=== PATIENT | male | born 1960 | race Caucasian/White ===

== ENCOUNTER 2019-04-23 16:45 | Emergency (ER) | payer MEDICAID, OTHER ==
[~2019-04-23] VITALS: Ht 165.1 cm; Wt 112.0 kg
[~2019-04-23 16:45] MED LIST: ATORVASTATIN CA10 MG ORAL; IBUPROFEN600 MG PO; NKM; NORCO 5-325 TA1 EACH ORAL; VICODIN 5-5001 EACH PO
[2019-04-23 17:03] VITALS: BP 117/87
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
[2019-04-23] MEDS ORDERED: Aspirin Baby 81mg ORAL ONE (17:30)
[2019-04-23] MEDS ORDERED: HYDROcodone/Acetamin 5/325 tab ORAL ONE (18:00)
[2019-04-23 18:27] LABS: ANION GAP 10 mmol/L (5-15); BASOPHILS % (AUTO) 1.9 % (0.0-2.0); BLOOD UREA NITROGEN 12 mg/dL (7-18); CALCIUM 8.8 MG/DL (8.5-10.1); CARBON DIOXIDE 25 MMOL/L (21-32); CHLORIDE 104 MMOL/L (98-107); CREATININE 0.8 MG/DL (0.55-1.30); EOSINOPHILS % (AUTO) 4.5 % (0.0-3.0); HEMOGLOBIN 13.4 G/DL (14.2-18.0); LYMPHOCYTES % (AUTO) 23.4 % (20.0-45.0); MEAN CORPUSCULAR VOLUME 88 FL (80-99); MONOCYTES % (AUTO) 7.1 % (1.0-10.0); NEUTROPHILS % (AUTO) 63.2 % (45.0-75.0); PLATELET COUNT 347 K/UL (150-450); POTASSIUM 4.1 MMOL/L (3.5-5.1); RED BLOOD COUNT 4.56 M/UL (4.70-6.10); RED CELL DISTRIBUTION WIDTH 11.5 % (11.6-14.8); SODIUM 139 MMOL/L (136-145); WHITE BLOOD COUNT 8.5 K/UL (4.8-10.8)
[2019-04-23 18:42] LABS: ALANINE AMINOTRANSFERASE 17 U/L (12-78); ALBUMIN 3.6 G/DL (3.4-5.0); ALKALINE PHOSPHATASE 91 U/L (46-116); ASPARTATE AMINO TRANSFERASE 30 U/L (15-37); BILIRUBIN,TOTAL 0.3 MG/DL (0.2-1.0); CKMB 0.5 NG/ML (0.0-3.6); CREATINE KINASE 156 U/L (26-308)
--- NOTE | 2019-04-23 18:47 | NUR ---
ED Nurse Note: ERMD at bedside discussing about dc plans.
[2019-04-23] MEDS ORDERED: NORCO 5-325 TA1 EACH ORAL (18:48)
[2019-04-23 18:53] VITALS: BP 121/79
--- NOTE | 2019-04-23 18:54 | Emergency Room Report ---
History of Present Illness General Chief Complaint: Chest Pain Source: Patient Present Illness HPI Patient presents emergency department today complaint chest pain. Patient states that he was recently admitted to the [facility] for chest pain where complete work-up and was observed for 3 days. At that time he was discharged and told that he needed follow-up as an outpatient. Patient presents today complaining again of chest pain states that he did not get a chance to follow-up as an outpatient. He denies any fever nausea vomiting diarrhea chills. Patient is requesting narcotic pain medications. Review of medical records show the patient has had a history of narcotic overdose as well as drug abuse. Symptoms noted to be moderate. No other modifying factors. No other associated signs and symptoms. No other complaints were noted. Allergies: Coded Allergies: TRAMADOL (Verified Allergy, 02/19/14) VANCOMYCIN (Verified Allergy, 02/19/14) Patient History Past Medical History: other - High cholesterol Past Surgical History: none Pertinent Family History: none Social History: Denies: smoking, alcohol use, drug use Reviewed Nursing Documentation: PMH: Agreed; PSxH: Agreed Nursing Documentation-PMH Past Medical History: No History, Except For Hx Cardiac Problems: Yes - MA, high cholesterol Review of Systems All Other Systems: negative except mentioned in HPI Physical Exam Vital Signs Date Time Temp Pulse Resp B/P (MAP) Pulse Ox O2 Delivery O2 Flow Rate FiO2 04/23/19 16:53 98.2 99 20 117/85 (96) 98 Room Air Sp02 EP Interpretation: reviewed, normal General Appearance: normal inspection, well appearing, no apparent distress, alert Head: atraumatic Eyes: bilateral eye normal inspection ENT: normal ENT inspection, hearing grossly normal, normal voice Neck: normal inspection, full range of motion, supple, no bony tend Respiratory: normal inspection, lungs clear, normal breath sounds, no respiratory distress, no retraction, no wheezing Cardiovascular #1: regular rate, rhythm, no edema Gastrointestinal: normal inspection, normal bowel sounds, non tender, soft, no guarding, no hernia Genitourinary: no CVA tenderness Musculoskeletal: normal inspection, back normal, normal range of motion Neurologic: normal inspection, alert, responsive, speech normal Psychiatric: normal inspection, judgement/insight normal, mood/affect normal Medical Decision Making Diagnostic Impression: Primary Impression: Chest pain ER Course Patient presented to the emergency department today complaining of chest pain. Differential diagnoses include acute coronary syndrome, pulmonary embolism, pneumothorax, chest wall pain, pleurisy, pericarditis, acute anxiety reaction just to name a few. Given the severity of the patient's presentation I felt this is a highly complex patient. This patient required extensive workup. CBC , chemistry, EKG, chest x-ray, cardiac enzymes, liver profile were all obtained. 12-lead EKG performed for nontraumatic chest pain. RS documentation: EKG was performed. Please refer to below for interpretation. Patient had CBC and chemistry obtained. Both of which were normal. Patient's cardiac enzymes also normal. Patient had normal chest x-ray. Patient's EKG and rhythm strip are also normal. Patient is comfortable eating a sandwich. Nontoxic-appearing. Given negative work-up I feel the patient be discharged home. He already was admitted to another hospital and had a work-up there. I did recommend outpatient stress test. Patient is advised to follow up with primary doctor in 2-3 days and return the emergency room for any worsening symptoms and as needed. Labs Test 04/23/19 17:48 White Blood Count 8.5 K/UL (4.8-10.8) Red Blood Count 4.56 M/UL (4.70-6.10) Hemoglobin 13.4 G/DL (14.2-18.0) Hematocrit 40.0 % (42.0-52.0) Mean Corpuscular Volume 88 FL (80-99) Mean Corpuscular Hemoglobin 29.4 PG (27.0-31.0) Mean Corpuscular Hemoglobin Concent 33.5 G/DL (32.0-36.0) Red Cell Distribution Width 11.5 % (11.6-14.8) Platelet Count 347 K/UL (150-450) Mean Platelet Volume 4.7 FL (6.5-10.1) Neutrophils (%) (Auto) 63.2 % (45.0-75.0) Lymphocytes (%) (Auto) 23.4 % (20.0-45.0) Monocytes (%) (Auto) 7.1 % (1.0-10.0) Eosinophils (%) (Auto) 4.5 % (0.0-3.0) Basophils (%) (Auto) 1.9 % (0.0-2.0) Sodium Level 139 MMOL/L (136-145) Potassium Level 4.1 MMOL/L (3.5-5.1) Chloride Level 104 MMOL/L (98-107) Carbon Dioxide Level 25 MMOL/L (21-32) Anion Gap 10 mmol/L (5-15) Blood Urea Nitrogen 12 mg/dL (7-18) Creatinine 0.8 MG/DL (0.55-1.30) Estimat Glomerular Filtration Rate > 60 mL/min (>60) Glucose Level 105 MG/DL (74-106) Calcium Level 8.8 MG/DL (8.5-10.1) Total Bilirubin 0.3 MG/DL (0.2-1.0) Aspartate Amino Transf (AST/SGOT) 30 U/L (15-37) Alanine Aminotransferase (ALT/SGPT) 17 U/L (12-78) Alkaline Phosphatase 91 U/L (46-116) Total Creatine Kinase 156 U/L (26-308) Creatine Kinase MB 0.5 NG/ML (0.0-3.6) Creatine Kinase MB Relative Index 0.3 Troponin I 0.000 ng/mL (0.000-0.056) Pro-B-Type Natriuretic Peptide 53 pg/mL (0-125) Total Protein 7.1 G/DL (6.4-8.2) Albumin 3.6 G/DL (3.4-5.0) Globulin 3.5 g/dL Albumin/Globulin Ratio 1.0 (1.0-2.7) EKG Diagnostic Results Rate: normal Rhythm: NSR ST Segments: no acute changes Rhythm Strip Diag. Results EP Interpretation: yes Rate: 94 Rhythm: NSR, no PVC's, no ectopy Chest X-Ray Diagnostic Results Chest X-Ray Diagnostic Results : Chest X-Ray Ordered: Yes # of Views/Limited/Complete: 1 View Indication: Chest Pain EP Interpretation: Yes Interpretation: no consolidation, no effusion, no pneumothorax Impression: No acute disease Electronically Signed by: Electronically signed by oJhn Kebede MD Last Vital Signs Date Time Temp Pulse Resp B/P (MAP) Pulse Ox O2 Delivery O2 Flow Rate FiO2 04/23/19 18:34 98.2 04/23/19 17:03 99 20 Room Air 04/23/19 17:03 117/87 100 Status: improved Disposition: HOME, SELF-CARE Condition: Stable Scripts Hydrocodone Bit/Acetaminophen 5-325* (NORCO 5-325*) 1 Each Tablet 1 TAB ORAL Q6H PRN for For Pain, #15 TAB 0 Refills Prov: John Kebede MD 04/23/19 Referrals: NOT CHOSEN IPA/,REFERRING (PCP) Patient Instructions: Nonspecific Chest Pain John Kebede MD Apr 23, 2019 18:54
[2019-04-23 18:55] VITALS: BP 121/79
--- NOTE | 2019-04-23 18:55 | NUR ---
ER DISCHARGE NOTE: Patient is cleared to be discharged per ERMD, pt is aox4, on room air, with stable vital signs. pt was given dc and prescription instructions, pt was able to verbalize understanding, pt id band and iv site removed without complications. pt is able to ambulate with steady gait. pt took all belongings.
--- NOTE | 2019-04-24 12:07 | Diagnostic Imaging Report ---
Indication: Cough Comparison: 1213 A single view chest radiograph was obtained. Findings: Lung volumes are very low. Bronchovascular markings are prominent but the grossly unchanged. No obvious infiltrate identified. Bones are unremarkable. IMPRESSION: Limited evaluation. No definite infiltrate. No change
--- NOTE | 2019-04-25 16:03 | Cardiology Report ---
APPROVED REPORT EKG Measurement Heart [id number] Normal sinus rhythm with sinus arrhythmia Possible Inferior infarct, age undetermined Abnormal ECG
== END 2019-04-23 18:55 | disposition home or self-care (01) ==
LOC: EMR 17:29 → CANBEDREQ 18:47 → EMR 18:55
DX: R07.9 Chest pain, unspecified (principal); Z88.8 Allergy status to other drugs, medicaments and biological substances; E78.00 Pure hypercholesterolemia, unspecified; I25.2 Old myocardial infarction
CPT/HCPCS: 36415; 71045; 80053; 82550; 82553; 83880; 84484; 85025; 93005; 99284

== ENCOUNTER 2019-04-25 12:52 | Emergency (ER) | payer OTHER ==
[~2019-04-25] VITALS: Ht 165.1 cm; Wt 112.0 kg
[2019-04-25 13:00] VITALS: BP 127/91
--- NOTE | 2019-04-25 13:15 | NUR ---
ED Nurse Note: Patient presents to ER due to constant chest pain for days. Patient awake, alert, oriented x 4. Regular, unlabored breathing noted. No N/V or diaphoresis noted. Jaron Humphreys. at bedside. Patient states he lost [place] and asking for pain medication, strong for chronic, constant pain all over the body. Placed patient on athletic monitor and no ectopy noted. Bed in lowest position.
--- NOTE | 2019-04-25 13:20 | NUR ---
ED Nurse Note: Dr. Shultz at bedside. Patient states he lost [place] and asking for pain medications. Patient also asking for sandwiches and juice.
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
[2019-04-25] MEDS: Tylenol #3 tab (300mg/30mg) ORAL ONE (13:33)
[2019-04-25 13:48] VITALS: BP 136/95
--- NOTE | 2019-04-25 13:48 | NUR ---
ED Discharge: Patient is being discharged from medical care. Patient has home address and wear weather approriate clothing. Patient awake, alert and oriented x4. After care instructions, including referral to community resources were given. Patient verbalized understanding of After care instructions. All medical devices such as IV and ID band were removed. Patient ambulated out with all personal belongings with steady gait.
== END 2019-04-25 13:48 | disposition home or self-care (01) ==
LOC: EMR 13:30
DX: Z76.5 Malingerer [conscious simulation] (principal); R07.9 Chest pain, unspecified; Z59.0 Homelessness; Z88.5 Allergy status to narcotic agent; Z88.1 Allergy status to other antibiotic agents; I25.2 Old myocardial infarction
CPT/HCPCS: 93005; 99282